=== PATIENT | female | born 2000 | race Caucasian/White ===

== ENCOUNTER 2020-08-18 06:06 | Emergency (ER) | payer MEDICAID, OTHER ==
[~2020-08-18] VITALS: Ht 167.6 cm; Wt 63.6 kg
--- NOTE | 2020-08-18 06:38 | PHYS DOC ---
General Adult HPI: HPI: 20 yo presents to the ed with her brother (pt provides consent for him to be in room) day #7 (s/p C/S w/pre-clampsia @ [facility]), c/o bleeding at C- section site that started just prior to arrival after patient's dog jumped on her belly while she was sleeping. Reports compliance with BP meds-just took nif idipine in ed. Pt reports she was just discharged yesterday from [facility]. Is currently . Has pmd appt for control. Baby still in NICU. No associated headache, abdominal/pelvic pain, epigastric abdominal pain, back pain, abnormal vaginal dc/odor, dysuria, hematuria, confusion, depression, decreased sleep/tearfulness, dyspnea/orthopnea, leg swelling or blurry vision/vi sual changes. Review of Systems: Review of Systems: Constitutional: Denies fever or chills Eyes: Denies change in visual acuity HENT: Denies nasal congestion or sore throat Respiratory: Denies cough or shortness of breath Cardiovascular: Denies chest pain or edema GI: Denies abdominal pain, nausea, vomiting, bloody stools or diarrhea : Denies dysuria or hematuria Musculoskeletal: Denies back pain or joint pain Integument: Denies rash or diaphoresis Neurologic: Denies headache, focal weakness or sensory changes Endocrine: Denies polyuria or polydipsia Lymphatic: Denies swollen glands Psychiatric: Denies depression or anxiety Physical Exam: PE: Constitutional: Well developed, well nourished, no acute distress, non-toxic appearance. HENT: Normocephalic, atraumatic, Eyes: EOMI, conjunctiva normal, no discharge. Neck: Normal range of motion, supple, Cardiovascular: S1/2 present, regular rhythm Lungs & Thorax: Speaking in full sentences, bilateral equal chest rise, no tachypnea or increased work of breathing Abdomen: soft, no tenderness, fundus 4 cm below umbilicus, middle area of horizontal c/s scar with 2 locations of scant bleeding -pressure on nearby skin expresses dark blood, no rash/warmth/purulent drainage Skin: Warm, dry, no erythema, no rash. [] Back: No midlime tenderness, no CVA tenderness. [] Extremities: No tenderness, no cyanosis, no lower extremity edema Neurologic: Alert and oriented X 3, normal motor function, normal sensory function, no focal deficits noted. [] Psychologic: Affect normal, judgement normal, mood normal. [] EKG: EKG: [] Radiology/Procedures: Radiology/Procedures: [] Heart Score: Risk Factors: Risk Factors: DM, Current or recent (<one month) smoker, HTN, HLP, family history of CAD, obesity. Risk Scores: Score 0 - 3: 2.5% MACE over next 6 weeks - Discharge Home Score 4 - 6: 20.3% MACE over next 6 weeks - Admit for Clinical Observation Score 7 - 10: 72.7% MACE over next 6 weeks - Early Invasive Strategies Course & Med Decision Making: Course & Med Decision Making Pertinent Labs and Imaging studies reviewed. (See chart for details) Concern for accidental wound dehiscence. Repaired with 2 layers of dermabond, no signs of infection. No severe features of preeclampsia. No associated depression. RN with education on using legs/UEs for movement-minimal abdominal muscle movement. Any further bleeding hold pressure x10 minutes. Wound care instructions given and patient was encouraged to see her HEMATOLOGY NURSE EDUCATOR this week for a wound check (preferably in 24-48 hours). Will discharge home with strict ED return precautions were given for fever, rash, purulent drainage or abdominal/pelvic pain. Encouraged urgent outpatient follow-up with PMD and obgyn. Life-threatening processes were considered but are low suspicion at this time, given history, physical exam and ED workup. Pt was educated on all prescription medications and adverse effects. All patient's questions were answered and pt was stable at time of discharge. Life/limb-threatening differential includes but is not limited to, erythema multiforme, burch-fahad syndrome, toxic epidermal necrolysis, staphylococcal scalded skin syndrome, necrotizing fasciitis/myositis/cellulitis, purpura fulminans, heparin or warfarin induced skin necrosis, angioedema, anaphylaxis drug rash, disseminated intravascular coagulation, disseminated gonococcal disease, vasculitis, septicemia, petechial disorder or coagulopathy, viral exanthem, Kawasaki's disease or life-threatening burn requiring burn center management or escharotomy. I spoken with the patient and her caregivers. I explained the patient's condition, diagnoses and treatment plan based on the information available to me at this time. I have answered the patient and her caregiver's questions and addressed any concerns. The patient and her caregivers have a good understanding of patient's diagnosis, condition and treatment plan as can be expected at this point. Vital signs have been stable. Patient's condition is stable and appropriate for discharge from the emergency department. Patient will pursue further outpatient evaluation with primary care physician or other designated or consulting physician as outlined in the discharge instructions. The patient and/or caregivers are agreeable to this plan of care and follow-up instructions have been explained in detail. The patient and/or caregivers have received these instructions in written form and have expressed an understanding of the discharge instructions. The patient and/or caregivers are aware that any significant change of condition or worsening of symptoms should prompt immediate return to this or the closest emergency department or [facility] to 911. Bessie Disclaimer: Bessie Disclaimer: This electronic medical record was generated, in whole or in part, using a voice recognition dictation system. Departure Departure: Impression: Primary Impression: wound dehiscence Additional Impression: Postoperative bleeding from incision Disposition: 01 DC HOME SELF CARE/HOMELESS Condition: STABLE Referrals: TERRI REDD MD (PCP) in 1 -2 days for re-evaluation Patient Instructions: Wound Check, Wound Dehiscence Additional Instructions: EMERGENCY DEPARTMENT GENERAL DISCHARGE INSTRUCTIONS Thank you for coming to [facility] (ED) today and trusting us with you care. We trust that you had a positivie experience in our Emergency Department. If you wish to speak to the department management, you may call the director at [phone]. YOUR FOLLOW UP INSTRUCTIONS ARE FOLLOWS: 1. Do you have a private Doctor? If you do not have a private doctor, please ask for a resource list of physicians or clinics that may be able to assist you with follow up care. 2. The Emergency Physician has interpreted your x-rays. The X-Ray specialist will also review them. If there is a change in the findings, you will be notified in 48 hours when at all possible. 3. A lab test or culture has been done, your results will be reviewed and you will be notified if you need a change in treatment. ADDITIONAL INSTRUCTIONS AND INFORMATION: 1. Your care today has been supervised by a physician who is specially trained in emergency care. Many problems require more than one evaluation for a complete diagnosis and treatment. We recommend that you schedule your follow up appointment as recommended to ensure complete treatment of you illness or injury. If you are unable to obtain follow up care and continue to have a problem, or if your condition worsens, we recommend that you return to the ED. 2. We are not able to safely determine your condition over the phone nor are we able to give sound medical advice over the phone. For these safety reasons, if you call for medical advice we will ask you to come to the ED for further evaluation. 3. If you have any questions regarding these discharge instructions please call the ED at [phone]. SAFETY INFORMATION: In the interest of safety, wellness, and injury prevention; we encourage you to wear your sealbelt, if you smoke; quite smoking, and we encourage family to use a protective helmet for bicycling and other sporting events that present an increased risk for head injury. IF YOUR SYMPTOMS WORSEN OR NEW SYMPTOMS DEVELOP, OR YOU HAVE CONCERNS ABOUT YOUR CONDITION; OR IF YOUR CONDITION WORSENS WHILE YOU ARE WAITING FOR YOUR FOLLOW UP APPOINTMENT; EITHER CONTACT YOUR PRIMARY CARE DOCTOR, THE PHYSICIAN WHOSE NAME AND NUMBER YOU WERE GIVEN, OR RETURN TO THE ED IMMEDIATELY. HORTENCIA GAMA DO Aug 18, 2020 06:38
[2020-08-18 07:10] VITALS: BP 149/93
== END 2020-08-18 07:10 | disposition home or self-care (01) ==
LOC: ER 06:06
DX: O90.0 Disruption of cesarean delivery wound (principal); O72.1 Other immediate postpartum hemorrhage
CPT/HCPCS: 99282

== ENCOUNTER 2020-09-28 21:44 | Emergency (ER) | payer OTHER ==
[~2020-09-28] VITALS: Ht 167.6 cm; Wt 56.6 kg
[2020-09-28 22:21] LABS: HEMATOCRIT 37.6 % (36.0-47.0); HEMOGLOBIN 12.8 g/dL (12.0-15.5); RED BLOOD COUNT 4.46 x10^6/uL (3.50-5.40); WHITE BLOOD COUNT 14.1 x10^3/uL (4.0-11.0)
--- NOTE | 2020-09-28 22:21 | PHYS DOC ---
Past History Past Medical History: Diabetes, Other Additional Past Medical Histor: preeclampsia, diabetes type I Past Surgical History: Alcohol Use: None Adult General Chief Complaint Chief Complaint: MULTIPLE COMPLAINTS HPI HPI Patient is a 20-year-old female, who presents with a chief complaint of 1 day of right-sided flank pain, nausea, and vomiting. States he has been doing well up until earlier in the day. States he has been eating and drinking normally for her. States has been making urine and stool normally for her with no blood in either. Denies headache, chest pain, shortness of breath, abdominal pain, dysuria. Denies any vaginal bleeding or discharge. Denies any history of STIs. Denies any recent travel, traumas, illnesses, fevers or known ill contacts. Review of Systems Review of Systems Review of systems otherwise unremarkable except noted in HPI Physical Exam Physical Exam Constitutional: Well developed, well nourished, no acute distress, non-toxic appearance. [] HENT: Normocephalic, atraumatic, bilateral external ears normal, oropharynx moist, no oral exudates, nose normal. [] Eyes: PERRLA, conjunctiva normal, no discharge. [] Neck: Normal range of motion, no tenderness, Cardiovascular: Sinus tachycardia Lungs & Thorax: Bilateral breath sounds clear to auscultation [] Abdomen: soft, no tenderness, no masses, no pulsatile masses. [] Skin: Warm, dry, no erythema, no rash. [] Back: No tenderness, no CVA tenderness. [] Extremities: No tenderness, no cyanosis, no clubbing, ROM intact, no edema. [] Neurologic: Alert and oriented X 3, normal motor function, normal sensory function, no focal deficits noted. [] Psychologic: Affect normal, judgement normal, mood normal. [] EKG EKG [] Radiology/Procedures Radiology/Procedures []T abdomen pelvis without contrast dated 09/28/2020. No comparison available. CLINICAL INDICATION: Left flank pain. TECHNIQUE: Contiguous axial imaging the abdomen pelvis performed without the administration of IV or oral contrast. One or more of the following individualized dose reduction techniques were utilized for this examination: 1. Automated exposure control 2. Adjustment of the mA and/or kV according to patient size 3. Use of iterative reconstruction technique. FINDINGS: Limited images of lung bases are clear. Heart size within normal limits. No pleural or pericardial effusion. Solid abdominal viscera not well evaluated in the absence of contrast material. No apparent attenuation abnormality of the liver or spleen. Gallbladder unremarkable. Pancreas and adrenal glands unremarkable. There is mild pelvicaliectasis on the left with mild prominence of the left ureter. No definite calcific stone along the course of the left ureter. There is medullary nephrocalcinosis on the right. No right-sided ureteral stone or right sided hydronephrosis. Unopacified GI tract normal in caliber and contour. No focal bowel wall thickening. No inflammatory stranding in the mesentery. The appendix is normal in caliber. No ascites or lymphadenopathy. Abdominal aorta normal in caliber. Images of pelvis show nondistended urinary bladder. There is diffuse bladder wall thickening. Uterus and adnexa are unremarkable. No free fluid or lymphadenopathy. Abdominal aorta normal in caliber. Bone windows show no acute findings. IMPRESSION: 1. Mild pelvocaliectasis on the left without definite obstructing ureteral stone. This could be related to previously passed calculus or distal ureteral stricture. 2. Medullary nephrocalcinosis on the right without evidence of obstructing stone. 3. Diffuse wall thickening of the urinary bladder, nonspecific. Consider acute or chronic cystitis. Electronically signed by: Krishna Caldwell MD (09/28/2020 10:47 PM) [facility] Heart Score C/O Chest Pain: No Risk Factors: Risk Factors: DM, Current or recent (<one month) smoker, HTN, HLP, family history of CAD, obesity. Risk Scores: Risk Factors: DM, Current or recent (<one month) smoker, HTN, HLP, family history of CAD, obesity. Course & Med Decision Making Course & Med Decision Making Patient is 20-year-old female presents with right-sided flank pain associated with nausea and vomiting Vital signs notable for tachycardia. Physical exam noted above. Placed on the monitor with IV access established and IV fluid resuscitation begun. Given Zofran for nausea. Given morphine for pain. Vital signs notable for leukocytosis and nitrite positive urinary tract infection. Started on antibiotics in the emergency department. And some pain medications. Discussed all findings with patient. Advised a course of antibiotics at home. Given pain and nausea medicine for home. Advised to follow-up with primary care physician in the morning to update on ED visit. Gave strict return precautions to the ED. Patient grateful, verbalized understanding and agreed with plan of discharge. [] Dragon Disclaimer Dragon Disclaimer This electronic medical record was generated, in whole or in part, using a voice recognition dictation system. Departure Departure: Impression: Primary Impression: Right flank pain Additional Impressions: Nausea & vomiting Urinary tract infection Disposition: 01 DC HOME SELF CARE/HOMELESS Condition: GOOD Referrals: TERRI REDD MD (PCP) Patient Instructions: Urinary Tract Infection Additional Instructions: Please read all the attached information. Please be sure to stay hydrated. Please take your antibiotics as prescribed. Please use Tylenol and ibuprofen at home as needed for pain control. Please take your nausea medicine as needed. Please use your pain medicine at home for breakthrough pain only. Please do not exceed 3000 mg of Tylenol daily. Please call your primary care physician first thing in the morning to update on your ED visit, and your urinary tract infection diagnosis and set up a follow-up visit. Please come back to the emergency department with new or concerning symptoms as discussed. Scripts Cephalexin (CEPHALEXIN) 500 Mg Capsule 1 CAP PO TID for uti for 7 Days, #21 CAP Prov: ЕКАТЕРИНА MONTESINOS MD 09/28/20 Hydrocodone Bit/Acetaminophen (HYDROCODONE-APAP 5-325 ) 1 Each Tablet 1 TAB PO TID PRN for PAIN for 2 Days, #6 TAB 0 Refills Prov: ЕКАТЕРИНА MONTESINOS MD 09/28/20 Ondansetron Hcl (ZOFRAN) 4 Mg Tablet 1 TAB PO PRN Q6HRS PRN for NAUSEA for 5 Days, #6 TAB Prov: ЕКАТЕРИНА MONTESINOS MD 09/28/20 Problem Qualifiers ЕКАТЕРИНА MONTESINOS MD Sep 28, 2020 22:21
[2020-09-28] MEDS ORDERED: ONDANSETRON PF 4 MG/2 ML VIAL. ONE (22:22)
[2020-09-28 22:30] LABS: BILIRUBIN,URINE NEG (NEG); CLARITY,URINE HAZY; COLOR,URINE YELLOW; GLUCOSE,URINE 250 mg/dL (NEG)
[2020-09-28] MEDS ORDERED: ONDANSETRON PF 4 MG/2 ML VIAL. IVP ONE (22:30)
[2020-09-28] MEDS ORDERED: IV RINGERS SOLUTION,LACTATED 1,000 ML IV ONE (22:30)
[2020-09-28] MEDS ORDERED: MORPHINE SULFATE 4 MG/ML DISP.SYRIN. IV ONE (22:30)
[2020-09-28 22:31] LABS: BACTERIA,URINE FEW /HPF (0-FEW); NITRITE,URINE POS (NEG); SQUAMOUS EPITHELIAL CELL,UR FEW /LPF; UROBILINOGEN,URINE 0.2 mg/dL (0.2 mg/dL); WBC,URINE >40 /HPF (0-4)
[2020-09-28 22:31] LABS: CALCIUM 9.6 mg/dL (8.5-10.1); CREATININE 1.1 mg/dL (0.6-1.0); GFR 63.3; POTASSIUM 3.1 mmol/L (3.5-5.1)
[2020-09-28] MEDS ORDERED: IV NORMAL SALINE 50ML 50 ML ONE (22:42)
[2020-09-28] MEDS ORDERED: cefTRIAXone SODIUM 1 GM VIAL ONE (22:42)
--- NOTE | 2020-09-28 22:50 | RAD ---
CT abdomen pelvis without contrast dated 09/28/2020. No comparison available. CLINICAL INDICATION: Left flank pain. TECHNIQUE: Contiguous axial imaging the abdomen pelvis performed without the administration of IV or oral contra st. One or more of the following individualized dose reduction techniques were utilized for this examinat ion: 1. Automated exposure control 2. Adjustment of the mA and/or kV according to patient size 3. Use of iterative reconstruction technique. FINDINGS: Limited images of lung bases are clear. Heart size within normal limits. No pleural or pericardial ef fusion. Solid abdominal viscera not well evaluated in the absence of contrast material. No apparent attenuati on abnormality of the liver or spleen. Gallbladder unremarkable. Pancreas and adrenal glands unremark able. There is mild pelvicaliectasis on the left with mild prominence of the left ureter. No definite calci fic stone along the course of the left ureter. There is medullary nephrocalcinosis on the right. No r ight-sided ureteral stone or right sided hydronephrosis. Unopacified GI tract normal in caliber and contour. No focal bowel wall thickening. No inflammatory s tranding in the mesentery. The appendix is normal in caliber. No ascites or lymphadenopathy. Abdomina l aorta normal in caliber. Images of pelvis show nondistended urinary bladder. There is diffuse bladder wall thickening. Uterus and adnexa are unremarkable. No free fluid or lymphadenopathy. Abdominal aorta normal in caliber. Bone windows show no acute findings. IMPRESSION: 1. Mild pelvocaliectasis on the left without definite obstructing ureteral stone. This could be relat ed to previously passed calculus or distal ureteral stricture. 2. Medullary nephrocalcinosis on the right without evidence of obstructing stone. 3. Diffuse wall thickening of the urinary bladder, nonspecific. Consider acute or chronic cystitis. Electronically signed by: Krishna Caldwell MD (09/28/2020 10:47 PM) [facility]
[2020-09-28 22:56] LABS: U PREG PATIENT NEGATIVE (NEG)
[2020-09-28] MEDS ORDERED: HYDR-2155 PO (23:14)
[2020-09-28] MEDS ORDERED: CEPH500C PO (23:14)
[2020-09-28] MEDS ORDERED: ONDA4TAB7 PO (23:14)
[2020-09-28 23:35] VITALS: BP 134/82
== END 2020-09-28 23:28 | disposition home or self-care (01) ==
LOC: ER 21:44
DX: N39.0 Urinary tract infection, site not specified (principal); R11.2 Nausea with vomiting, unspecified; E10.9 Type 1 diabetes mellitus without complications; R00.0 Tachycardia, unspecified
CPT/HCPCS: 36415; 74176; 80048; 81001; 81025; 85027; 87086; 96365; 96375; 99284; J0696; J2270; J2405; J7120; 87077; 87186